=== PATIENT | female | born 1975 | race American Indian/Alaskan Native ===

== ENCOUNTER 2017-04-15 14:10 | Emergency (ER) | payer OTHER, MEDICARE ==
[2017-04-15 15:58] LABS: Basophils % (Auto) 0.7 % (0.0-1.8); Eosinophils % (Auto) 5.7 % (0.0-4.3); Hematocrit 31.8 % (30.3-42.9); Hemoglobin 10.3 gm/dl (10.1-14.3); Mean Corpuscular HGB Conc 32 % (30-34); Mean Corpuscular Hemoglobin 27 pg (28-32); Mean Corpuscular Volume 84 fl (79-97); Platelet Count 395 K/mm3 (140-440); Red Blood Count 3.77 M/mm3 (3.65-5.03); Red Cell Distribution Width 17.7 % (13.2-15.2); White Blood Count 6.7 K/mm3 (4.5-11.0)
[2017-04-15 16:18] LABS: Alanine Aminotransferase 13 units/L (7-56); Albumin 3.8 g/dL (3.9-5); Alkaline Phosphatase 91 units/L (35-129); Anion Gap 21 mmol/L; Blood Urea Nitrogen 11 mg/dL (7-17); Calcium 9.2 mg/dL (8.4-10.2); Carbon Dioxide 27 mmol/L (22-30); Chloride 93.7 mmol/L (98-107); Glucose 78 mg/dL (65-100); Lipase 31 units/L (13-60); Potassium 3.6 mmol/L (3.6-5.0); Sodium 138 mmol/L (137-145); Total Protein 7.7 g/dL (6.3-8.2)
[2017-04-15 18:22] LABS: Bilirubin,Urine NEG (Negative); Blood,Urine SM (Negative); Ketones,Urine TR mg/dL (Negative); Leukocyte Esterase,Urine MOD (Negative); Mucus,Urine FEW /HPF; Nitrite,Urine NEG (Negative); Protein,Urine <15 mg/dL mg/dL (Negative); Urobilinogen,Urine < 2.0 mg/dL (<2.0)
[2017-04-15] MEDS ORDERED: DILAUDID IV ONE (21:26)
[2017-04-15] MEDS ORDERED: NACL 0.9% 250ML 250 ML IV ONE (21:26)
[2017-04-15] MEDS ORDERED: ZOFRAN IV ONE (21:26)
--- NOTE | 2017-04-15 21:28 | Emergency Department Report ---
ED Abdominal Pain HPI - General Chief Complaint: Pain General Stated Complaint: ABDOMINAL PAIN Time Seen by Provider: 04/15/17 21:20 Source: patient, family, RN notes reviewed Mode of arrival: Ambulatory Limitations: No Limitations - History of Present Illness Initial Comments: This is a 41-year-old female. She is previously unknown to me. Her bariatric surgeon is Dr. Strauss. The patient reports that she had a gastric sleeve surgery done on 04/03/2017 at [facility]. She reports that she was discharged with liquid hydromorphone. She reports that she ran out of that medication this morning. The patient reports that she has lower abdominal pain and upper abdominal pain. The pain has been present since her surgery, but it got worse after she ran out of her pain medication. The pain is sharp, and increases with palpation, decreases with rest, laying on the left side, and with hydromorphone. The patient denies nausea, vomiting and diarrhea. She denies fevers and chills, chest pain or shortness of breath, and denies irritative and obstructive urinary symptoms. MD Complaint: abdominal pain -: Gradual Location: diffuse Severity: moderate Severity scale (0 -10): 8 Quality: cramping Improves With: medication, rest Worsens With: movement Associated Symptoms: denies other symptoms - Related Data Previous Rx's Medication Instructions Recorded Last Taken Type Dicyclomine [Bentyl] 10 mg PO QID PRN #1 bottle 04/16/17 Unknown Rx Ondansetron [Zofran Oral Liq] 4 mg PO Q6HR PRN #100 ml 04/16/17 Unknown Rx Promethazine [Phenergan SUPPOS] 50 mg PA Q6H PRN #20 supp.rect 04/16/17 Unknown Rx Allergies Allergy/AdvReac Type Severity Reaction Status Date / Time acetaminophen [From Vicodin] Allergy Rash Verified 04/15/17 15:43 hydrocodone Allergy Rash Verified 04/15/17 15:43 hydrocodone bitartrate Allergy Rash Verified 04/15/17 15:43 [From Vicodin] lamotrigine [From Lamictal] Allergy Unknown Verified 04/15/17 15:43 oxycodone HCl [From Percocet] Allergy Rash Verified 04/15/17 15:43 seasonal Allergy Rash Uncoded 04/15/17 15:43 ED Review of Systems ROS: Stated complaint: ABDOMINAL PAIN Other details as noted in HPI Constitutional: denies: fever Eyes: denies: vision change ENT: denies: epistaxis Respiratory: denies: cough Cardiovascular: denies: chest pain Gastrointestinal: abdominal pain Genitourinary: denies: dysuria Musculoskeletal: back pain (chronic) Skin: denies: lesions Neurological: denies: confusion ED Past Medical Hx - Past Medical History Previous Medical History?: Yes Hx Hypertension: Yes Hx Arthritis: Yes (Rheumatoid) Additional medical history: Jacky Olman syndrome, Morbid obesity - Surgical History Past Surgical History?: Yes Hx Breast Surgery: Yes (Reduction) Additional Surgical History: Gastric sleeve, cervical fusion, Tubaligation, Reversal of tubaligation 2012, 2014, Left ankle surgery with instrumentation - Social History Smoking Status: Never Smoker Substance Use Type: Non Opiate Pain, Prescribed - Medications Home Medications: Home Medications Medication Instructions Recorded Confirmed Last Taken Type Dicyclomine [Bentyl] 10 mg PO QID PRN #1 bottle 04/16/17 Unknown Rx Ondansetron [Zofran Oral Liq] 4 mg PO Q6HR PRN #100 ml 04/16/17 Unknown Rx Promethazine [Phenergan SUPPOS] 50 mg PA Q6H PRN #20 supp.rect 04/16/17 Unknown Rx ED Physical Exam - General Limitations: No Limitations General appearance: alert, in no apparent distress, obese - Head Head exam: Present: atraumatic, normocephalic - Eye Eye exam: Present: normal appearance, EOMI. Absent: nystagmus - ENT ENT exam: Present: normal exam, normal orophraynx, mucous membranes moist, normal external ear exam - Neck Neck exam: Present: normal inspection, full ROM. Absent: tenderness, meningismus - Respiratory Respiratory exam: Present: normal lung sounds bilaterally. Absent: respiratory distress, wheezes, rales, rhonchi, stridor, chest wall tenderness, accessory muscle use, decreased breath sounds, prolonged expiratory - Cardiovascular Cardiovascular Exam: Present: regular rate, normal rhythm, normal heart sounds. Absent: bradycardia, tachycardia, irregular rhythm, systolic murmur, diastolic murmur, rubs, gallop - GI/Abdominal GI/Abdominal exam: Present: soft, tenderness, normal bowel sounds. Absent: distended, guarding, rebound, rigid, pulsatile mass - Extremities Exam Extremities exam: Present: normal inspection, full ROM, normal capillary refill. Absent: pedal edema, joint swelling, calf tenderness - Back Exam Back exam: Present: normal inspection. Absent: full ROM, tenderness, CVA tenderness (R), CVA tenderness (L), muscle spasm, paraspinal tenderness, vertebral tenderness - Neurological Exam Neurological exam: Present: alert, oriented X3, other (Extraocular movements intact. Tongue midline. No facial droop. Facial sensation intact to light touch in the V1, V2, V3 distribution bilaterally. 5 and 5 strength in 4 extremities.. Sensation is intact to light touch in 4 extremities.). Absent: motor sensory deficit - Psychiatric Psychiatric exam: Present: normal affect, normal mood - Skin Skin exam: Present: warm, dry, intact, normal color. Absent: rash ED Course Vital Signs 04/15/17 04/15/17 04/15/17 15:33 20:58 23:00 Temperature 98.2 F 98.4 F Pulse Rate 81 84 87 Respiratory 18 16 14 Rate Blood Pressure 135/80 Blood Pressure 127/81 124/77 [Left] O2 Sat by Pulse 99 99 99 Oximetry ED Medical Decision Making - Lab Data Result diagrams: 04/15/17 15:47 04/15/17 15:47 Vital Signs 04/15/17 04/15/17 15:33 20:58 Temperature 98.2 F 98.4 F Pulse Rate 81 84 Respiratory 18 16 Rate Blood Pressure 135/80 Blood Pressure 127/81 [Left] O2 Sat by Pulse 99 99 Oximetry Lab Results 04/15/17 04/15/17 04/15/17 Range/Units 15:47 15:47 17:30 WBC 6.7 (4.5-11.0) K/mm3 RBC 3.77 (3.65-5.03) M/mm3 Hgb 10.3 (10.1-14.3) gm/dl Hct 31.8 (30.3-42.9) % MCV 84 (79-97) fl MCH 27 L (28-32) pg MCHC 32 (30-34) % RDW 17.7 H (13.2-15.2) % Plt Count 395 (140-440) K/mm3 Lymph % (Auto) 24.5 (13.4-35.0) % [place] % (Auto) 14.3 H (0.0-7.3) % Eos % (Auto) 5.7 H (0.0-4.3) % Baso % (Auto) 0.7 (0.0-1.8) % Lymph # 1.6 (1.2-5.4) K/mm3 [place] # 1.0 H (0.0-0.8) K/mm3 Eos # 0.4 (0.0-0.4) K/mm3 Baso # 0.0 (0.0-0.1) K/mm3 Seg Neutrophils % 54.8 (40.0-70.0) % Seg Neutrophils # 3.7 (1.8-7.7) K/mm3 Sodium 138 (137-145) mmol/L Potassium 3.6 (3.6-5.0) mmol/L Chloride 93.7 L (98-107) mmol/L Carbon Dioxide 27 (22-30) mmol/L Anion Gap 21 mmol/L BUN 11 (7-17) mg/dL Creatinine 1.1 (0.7-1.2) mg/dL Estimated GFR > 60 ml/min BUN/Creatinine Ratio 10.00 % Glucose 78 (65-100) mg/dL Lactic Acid (0.7-2.0) mmol/L Calcium 9.2 (8.4-10.2) mg/dL Total Bilirubin 0.20 (0.1-1.2) mg/dL AST 16 (5-40) units/L ALT 13 (7-56) units/L Alkaline Phosphatase 91 (35-129) units/L Total Protein 7.7 (6.3-8.2) g/dL Albumin 3.8 L (3.9-5) g/dL Albumin/Globulin Ratio 1.0 % Lipase 31 (13-60) units/L Urine Color Yellow (Yellow) Urine Turbidity Clear (Clear) Urine pH 6.0 (5.0-7.0) Ur Specific [place] 1.008 (1.003-1.030) Urine Protein <15 mg/dl (Negative) mg/dL Urine Glucose (UA) Neg (Negative) mg/dL Urine Ketones Tr (Negative) mg/dL Urine Blood Sm (Negative) Urine Nitrite Neg (Negative) Urine Bilirubin Neg (Negative) Urine Urobilinogen < 2.0 (<2.0) mg/dL Ur Leukocyte Esterase Mod (Negative) Urine WBC (Auto) 12.0 H (0.0-6.0) /HPF Urine RBC (Auto) 2.0 (0.0-6.0) /HPF U Epithel Cells (Auto) 12.0 (0-13.0) /HPF Amorphous Crystals Few Urine Mucus Few /HPF 04/15/17 Range/Units 21:32 WBC (4.5-11.0) K/mm3 RBC (3.65-5.03) M/mm3 Hgb (10.1-14.3) gm/dl Hct (30.3-42.9) % MCV (79-97) fl MCH (28-32) pg MCHC (30-34) % RDW (13.2-15.2) % Plt Count (140-440) K/mm3 Lymph % (Auto) (13.4-35.0) % [place] % (Auto) (0.0-7.3) % Eos % (Auto) (0.0-4.3) % Baso % (Auto) (0.0-1.8) % Lymph # (1.2-5.4) K/mm3 [place] # (0.0-0.8) K/mm3 Eos # (0.0-0.4) K/mm3 Baso # (0.0-0.1) K/mm3 Seg Neutrophils % (40.0-70.0) % Seg Neutrophils # (1.8-7.7) K/mm3 Sodium (137-145) mmol/L Potassium (3.6-5.0) mmol/L Chloride (98-107) mmol/L Carbon Dioxide (22-30) mmol/L Anion Gap mmol/L BUN (7-17) mg/dL Creatinine (0.7-1.2) mg/dL Estimated GFR ml/min BUN/Creatinine Ratio % Glucose (65-100) mg/dL Lactic Acid 1.00 (0.7-2.0) mmol/L Calcium (8.4-10.2) mg/dL Total Bilirubin (0.1-1.2) mg/dL AST (5-40) units/L ALT (7-56) units/L Alkaline Phosphatase (35-129) units/L Total Protein (6.3-8.2) g/dL Albumin (3.9-5) g/dL Albumin/Globulin Ratio % Lipase (13-60) units/L Urine Color (Yellow) Urine Turbidity (Clear) Urine pH (5.0-7.0) Ur Specific [place] (1.003-1.030) Urine Protein (Negative) mg/dL Urine Glucose (UA) (Negative) mg/dL Urine Ketones (Negative) mg/dL Urine Blood (Negative) Urine Nitrite (Negative) Urine Bilirubin (Negative) Urine Urobilinogen (<2.0) mg/dL Ur Leukocyte Esterase (Negative) Urine WBC (Auto) (0.0-6.0) /HPF Urine RBC (Auto) (0.0-6.0) /HPF U Epithel Cells (Auto) (0-13.0) /HPF Amorphous Crystals Urine Mucus /HPF - Radiology Data Radiology results: pending - Medical Decision Making Differential diagnosis: Narcotic bowel syndrome, postoperative infection, postoperative complication, perforation, drug seeking behavior, chronic pain Assessment and plan: 41-year-old female with acute on chronic abdominal pain after gastric sleeve surgery. She is afebrile, with reassuring vital signs and an unremarkable lactic acid. The patient reports that she can tolerate hydromorphone. She appears quite comfortable. No fevers or chills, no chest pain or shortness of breath. I have contacted her bariatric surgeon, Dr. Strauss. Dr. Siddiqui reports that based on the technical aspects of her previous surgery, it isn't possible for the patient to have an internal/Prather's hernia. She does agree with a CT scan of the abdomen and pelvis with IV and oral contrast. If the CT scan is negative, Dr. Madrid agrees to follow the patient up as an outpatient. I did discuss with Dr. Madrid and I do not feel comfortable prescribing hydromorphone as I have not done in the past, and unfortunately given the patient's multiple medication allergies, she would only be discharged with Bentyl, and nausea medication, which Dr. Bazzi agreed with. Critical care attestation.: If time is entered above; I have spent that time in minutes in the direct care of this critically ill patient, excluding procedure time. ED Disposition Clinical Impression: Abdominal pain Disposition: DC-01 TO HOME OR SELFCARE Is pt being admited?: No Does the pt Need Aspirin: No Condition: Stable Instructions: Abdominal Pain (ED) Additional Instructions: Take the pain medication, nausea medication as directed. Follow-up with her general surgeon within the next week. CT scan demonstrated nonspecific abnormality in the liver. This should be followed up by her primary care doctor within the next month. Not following up in a timely fashion for this incidental finding may result in an undiagnosed tumor/cancer/malignancy. Have your primary care doctor contact the medical records department to obtain CT scan results, and to obtain laboratory studies. Return to the ER right away with new pain, worsened pain, migration of pain, fevers, chills, confusion, intractable nausea or vomiting, inability to tolerate liquid feeds. Prescriptions: Dicyclomine [Bentyl] 10 mg PO QID PRN #1 bottle PRN Reason: Pain Ondansetron [Zofran Oral Liq] 4 mg PO Q6HR PRN #100 ml PRN Reason: Nausea Promethazine [Phenergan SUPPOS] 50 mg PA Q6H PRN #20 supp.rect PRN Reason: Nausea Referrals: TAHIRA SHERIDAN MD [Primary Care Provider] - 3-5 Days JOSE RAMON STRAUSS MD [Staff Physician] - 3-5 Days
[2017-04-15] MEDS ORDERED: NACL ONE (22:03)
[2017-04-15 23:51] VITALS: BP 124/77
--- NOTE | 2017-04-16 02:06 | Cat Scan Report ---
FINAL REPORT EXAM: CT ABDOMEN PELVIS W CON HISTORY: abd pain COMPARISON: None available. TECHNIQUE: Contiguous axial images were obtained. Additional sagittal and coronal reformatted images were obtained. Administration of IV contrast given per institution protocol. Images submitted for interpretation. 100 cc Omnipaque [id number]. FINDINGS: Mild linear atelectasis at the lung bases. Punctate gallstones. No gross inflammatory changes the gallbladder by CT. No biliary dilatation. Within the lateral segment left hepatic lobe, there is a hypodense lesion measuring 12 x 8 millimeters. This is indeterminate. There is a 5 millimeter low-attenuation lesion within the medial segment of left hepatic lobe and a 5 millimeter low-attenuation lesion within the inferior right hepatic lobe. These are too small to accurately characterize by CT, but may reflects cysts. Spleen and adrenal glands are grossly unremarkable. Within the pancreatic head there is a hypodense lesion measuring 6 x 5 millimeters (series 3, image 64). No solid renal lesion. No hydronephrosis aorta and IVC are normal in caliber. Urinary bladder is unremarkable. IUD is present along the midline of the uterus. Ovaries are grossly unremarkable. There are few pelvic phleboliths. No free fluid or lymphadenopathy. The appendix is partially gas-filled and normal in caliber. Large and small bowel loops normal in caliber. Prior gastric sleeve procedure. Mild wall thickening the stomach which may relate partially relate to its decompressed state. Minimal haziness adjacent fat which may be on a postsurgical basis. Mild gastritis cannot be excluded. Tiny umbilical hernia containing fat only. Subcutaneous fat stranding right upper abdomen which appears relate to laparoscopic port site. Bony pelvis and lumbar spine are grossly intact. Mild to moderate degenerative changes at the L4-L5 level with minimal anterolisthesis due to facet changes. IMPRESSION: Prior gastric sleeve procedure. Mild wall thickening of the stomach mild haziness of the adjacent fat which may be on a postsurgical basis. Mild gastritis cannot be excluded. No free air. Remaining large and small bowel loops normal in caliber. The appendix is normal in caliber. Cholelithiasis. No gross inflammatory changes the gallbladder biliary dilatation. There indeterminate subcentimeter low-attenuation hepatic lesions and 6 x 4 millimeter low-attenuation lesion at the hepatic head. This may reflect a small cyst. Cystic neoplasm cannot be entirely excluded. Followup [address] suggested within the next 6 months to ensure stability of hepatic and pancreatic lesions.
--- NOTE | 2017-04-16 02:24 | Event Note ---
Date: 04/16/17 Due to technical issues, I am unable to amend and adjust the current medical chart. CT scan demonstrates numerous incidental findings, with no significant postsurgical findings. Patient tolerated oral contrast without difficulty. She is instructed to follow up with her outpatient bariatric surgeon, and she is instructed to follow -up with her outpatient primary care doctor for the incidental finding in her liver. She will be discharged with pain medication, nausea medication, instructions to follow up. Vital Signs 04/15/17 04/15/17 04/15/17 15:33 20:58 23:00 Temperature 98.2 F 98.4 F Pulse Rate 81 84 87 Respiratory 18 16 14 Rate Blood Pressure 135/80 Blood Pressure 127/81 124/77 [Left] O2 Sat by Pulse 99 99 99 Oximetry Lab Results 04/15/17 04/15/17 04/15/17 Range/Units 15:47 15:47 17:30 WBC 6.7 (4.5-11.0) K/mm3 RBC 3.77 (3.65-5.03) M/mm3 Hgb 10.3 (10.1-14.3) gm/dl Hct 31.8 (30.3-42.9) % MCV 84 (79-97) fl MCH 27 L (28-32) pg MCHC 32 (30-34) % RDW 17.7 H (13.2-15.2) % Plt Count 395 (140-440) K/mm3 Lymph % (Auto) 24.5 (13.4-35.0) % [place] % (Auto) 14.3 H (0.0-7.3) % Eos % (Auto) 5.7 H (0.0-4.3) % Baso % (Auto) 0.7 (0.0-1.8) % Lymph # 1.6 (1.2-5.4) K/mm3 [place] # 1.0 H (0.0-0.8) K/mm3 Eos # 0.4 (0.0-0.4) K/mm3 Baso # 0.0 (0.0-0.1) K/mm3 Seg Neutrophils % 54.8 (40.0-70.0) % Seg Neutrophils # 3.7 (1.8-7.7) K/mm3 Sodium 138 (137-145) mmol/L Potassium 3.6 (3.6-5.0) mmol/L Chloride 93.7 L (98-107) mmol/L Carbon Dioxide 27 (22-30) mmol/L Anion Gap 21 mmol/L BUN 11 (7-17) mg/dL Creatinine 1.1 (0.7-1.2) mg/dL Estimated GFR > 60 ml/min BUN/Creatinine Ratio 10.00 % Glucose 78 (65-100) mg/dL Lactic Acid (0.7-2.0) mmol/L Calcium 9.2 (8.4-10.2) mg/dL Total Bilirubin 0.20 (0.1-1.2) mg/dL AST 16 (5-40) units/L ALT 13 (7-56) units/L Alkaline Phosphatase 91 (35-129) units/L Total Protein 7.7 (6.3-8.2) g/dL Albumin 3.8 L (3.9-5) g/dL Albumin/Globulin Ratio 1.0 % Lipase 31 (13-60) units/L Urine Color Yellow (Yellow) Urine Turbidity Clear (Clear) Urine pH 6.0 (5.0-7.0) Ur Specific [place] 1.008 (1.003-1.030) Urine Protein <15 mg/dl (Negative) mg/dL Urine Glucose (UA) Neg (Negative) mg/dL Urine Ketones Tr (Negative) mg/dL Urine Blood Sm (Negative) Urine Nitrite Neg (Negative) Urine Bilirubin Neg (Negative) Urine Urobilinogen < 2.0 (<2.0) mg/dL Ur Leukocyte Esterase Mod (Negative) Urine WBC (Auto) 12.0 H (0.0-6.0) /HPF Urine RBC (Auto) 2.0 (0.0-6.0) /HPF U Epithel Cells (Auto) 12.0 (0-13.0) /HPF Amorphous Crystals Few Urine Mucus Few /HPF //17 Range/Units 21:32 WBC (4.5-11.0) K/mm3 RBC (3.65-5.03) M/mm3 Hgb (10.1-14.3) gm/dl Hct (30.3-42.9) % MCV (79-97) fl MCH (28-32) pg MCHC (30-34) % RDW (13.2-15.2) % Plt Count (140-440) K/mm3 Lymph % (Auto) (13.4-35.0) % [place] % (Auto) (0.0-7.3) % Eos % (Auto) (0.0-4.3) % Baso % (Auto) (0.0-1.8) % Lymph # (1.2-5.4) K/mm3 [place] # (0.0-0.8) K/mm3 Eos # (0.0-0.4) K/mm3 Baso # (0.0-0.1) K/mm3 Seg Neutrophils % (40.0-70.0) % Seg Neutrophils # (1.8-7.7) K/mm3 Sodium (137-145) mmol/L Potassium (3.6-5.0) mmol/L Chloride (98-107) mmol/L Carbon Dioxide (22-30) mmol/L Anion Gap mmol/L BUN (7-17) mg/dL Creatinine (0.7-1.2) mg/dL Estimated GFR ml/min BUN/Creatinine Ratio % Glucose (65-100) mg/dL Lactic Acid 1.00 (0.7-2.0) mmol/L Calcium (8.4-10.2) mg/dL Total Bilirubin (0.1-1.2) mg/dL AST (5-40) units/L ALT (7-56) units/L Alkaline Phosphatase (35-129) units/L Total Protein (6.3-8.2) g/dL Albumin (3.9-5) g/dL Albumin/Globulin Ratio % Lipase (13-60) units/L Urine Color (Yellow) Urine Turbidity (Clear) Urine pH (5.0-7.0) Ur Specific [place] (1.003-1.030) Urine Protein (Negative) mg/dL Urine Glucose (UA) (Negative) mg/dL Urine Ketones (Negative) mg/dL Urine Blood (Negative) Urine Nitrite (Negative) Urine Bilirubin (Negative) Urine Urobilinogen (<2.0) mg/dL Ur Leukocyte Esterase (Negative) Urine WBC (Auto) (0.0-6.0) /HPF Urine RBC (Auto) (0.0-6.0) /HPF U Epithel Cells (Auto) (0-13.0) /HPF Amorphous Crystals Urine Mucus /HPF
[2017-04-16] MEDS ORDERED: CARAFATE PO ONE (02:49)
== END 2017-04-16 03:20 | disposition home or self-care (01) ==
LOC: ED 14:10
DX: R10.84 Generalized abdominal pain (principal); G89.18 Other acute postprocedural pain; I10 Essential (primary) hypertension; M06.9 Rheumatoid arthritis, unspecified; Z98.51 Tubal ligation status; Z88.6 Allergy status to analgesic agent; Z88.8 Allergy status to other drugs, medicaments and biological substances
CPT/HCPCS: 36415; 74177; 80053; 81001; 82140; 83690; 85025; 96361; 96374; 96375; 99284; J1170; J2405; J7050; Q9967